=== PATIENT | male | born 1985 | race Two or more races ===

== ENCOUNTER 2022-03-21 03:18 | Observation (INO) ==
[2022-03-21] MEDS ORDERED: SODIUM CHLORIDE 0.9% 1,000 ML IV STA (03:30)
[2022-03-21] MEDS ORDERED: ceFAZolin 2,000 MG/50 ML DUPLEX IV ONE (03:30)
[2022-03-21] MEDS ORDERED: ONDANSETRON 4 MG/2 ML VIAL IV PRN ×2 (03:35→08:21)
[2022-03-21] MEDS ORDERED: fentaNYL 100 MCG/2 ML VIAL IV STA (03:35)
[2022-03-21 03:48] LABS: Basophils # 0.1 10*3/uL (0.0-0.2); Basophils % 0.9 % (0.0-0.8); Eosinophils # 0.1 10*3/uL (0.0-0.87); Eosinophils % 0.7 % (0.00-10.9); Hematocrit 42.5 VOL% (42.0-52.0); Hemoglobin 14.4 GM/DL (14.0-18.0); Immature Granulocytes % 0.3 %; Immature Granulocytes Absolute 0.03 #; Lymphocytes # 4.8 10*3/uL (1.4-4.0); Lymphocytes % 41.3 % (21.2-54.2); Mean Corpuscular HGB Conc 33.9 GM/DL (32-36); Mean Corpuscular Volume 91.4 FL (87-102); Mean Platelet Volume 10.3 FL (9.6-12.0); Monocytes # 0.9 10*3/uL (0.11-0.8); Monocytes % 7.5 % (1.7-12.7); Neutrophils % 49.3 % (38.7-73.9); Platelet Count 395 T/CUMM (130-400); Red Blood Count 4.65 MC/CUMM (3.8-5.5); Red Cell Distribution Width 12.6 % (9.3-17.3); White Blood Count 11.5 T/CUMM (4-12)
[2022-03-21 03:59] LABS: INR 0.9; PT Patient Result 10.4 SECS (10.1-12.1); Partial Thromboplastin Time 22.2 SECS (23.7-32.9)
[2022-03-21 04:10] LABS: Calcium 8.4 MG/DL (8.5-10.1); Osmolality,Calculated 280.3 MOS/KG (273-304); Potassium 3.1 MMOL/L (3.5-5.1)
[2022-03-21] MEDS: SODIUM CHLORIDE 0.9% 1,000 ML IV SCH ×3 (04:10→23:43)
[2022-03-21] MEDS: HYDROmorphone 1 MG/1 ML SYRINGE IV PRN ×4 (06:05→18:16)
[2022-03-21] MEDS ORDERED: FAMOTIDINE 20 MG TABLET PO ONE (08:06)
[2022-03-21] MEDS ORDERED: MEPERIDINE 25 MG/1 ML VIAL IV PRN (08:21)
[2022-03-21] MEDS ORDERED: LACTATED RINGERS 1,000 ML IV SCH (09:00)
[2022-03-21] MEDS ORDERED: ROCURONIUM 50 MG/5 ML VIAL IV ONE (09:51)
[2022-03-21] MEDS ORDERED: DESFLURANE 1 UNIT/15 MINUTE INH ONE ×2 (09:55→09:56)
[2022-03-21] MEDS ORDERED: propofoL 200 MG/20 ML VIAL IV ONE ×2 (09:55)
[2022-03-21] MEDS ORDERED: LIDOCAINE 2% 5 ML VIAL ONE (09:55)
[2022-03-21] MEDS ORDERED: SUCCINYLCHOLINE 200 MG/10 ML VIAL ONE (09:55)
[2022-03-21] MEDS ORDERED: ONDANSETRON 4 MG/2 ML VIAL ONE (09:56)
[2022-03-21] MEDS ORDERED: GLYCOPYRROLATE 0.4 MG/2 ML VIAL ONE (09:58)
[2022-03-21] MEDS ORDERED: KETOROLAC 30 MG/1 ML VIAL ONE (10:01)
[2022-03-21] MEDS: AMOXICILLIN/CLAV 500 MG TABLET PO SCH ×2 (11:11→20:23)
[2022-03-21] MEDS: KETOROLAC 15 MG/1 ML VIAL IV SCH (20:23)
[2022-03-22] MEDS: KETOROLAC 15 MG/1 ML VIAL IV SCH ×2 (02:41→08:02)
[2022-03-22] MEDS: AMOXICILLIN/CLAV 500 MG TABLET PO SCH (08:02)
[2022-03-22 08:20] VITALS: BP 101/70
[2022-03-22] MEDS: SODIUM CHLORIDE 0.9% 1,000 ML IV SCH (08:34)
== END 2022-03-22 10:45 | disposition home or self-care (01) ==
LOC: N.EDINP 03:18 → N.ED 03:18 → N.3E 03:53
PROVIDERS: ADMIT Surgery; ATTEND Surgery